=== PATIENT | female | born 1960 | race Hispanic/Latino ===

== ENCOUNTER → 2025-06-03 | Outpatient (CLI) | payer BC ==
--- NOTE | 2025-06-04 22:53 | HMCIMG ---
EXAM: MR Lumbar Spine Without Intravenous Contrast. CLINICAL HISTORY: Radiculopathy. TECHNIQUE: Magnetic resonance images of the lumbar spine in multiple planes. CONTRAST: None. COMPARISON: None. FINDINGS: For this examination, spinal levels were labeled assuming five non-rib bearing, lumbar-type vertebrae with the inferior labeled L5. No acute fracture. Normal lordotic curvature. Normal vertebral body height and marrow signal intensity. Multilevel disc desiccation. Mild degenerative reduction in disc space at T10-T11, T11-T12 level with degenerative lateral syndesmophyte. Type I Modic endplate changes at the T11-T12 level. Mild disc bulge at L5-S1 level. Multilevel degenerative facet arthropathy and facet joint effusion at L3-L4, L4-L5, and L5-S1 levels, most prominent at the L5-S1 level with facet joint effusion. Conus medullaris terminates at the T12-L1 level. No abnormal epidural masses. The surrounding soft tissues are unremarkable. Individual spinal levels are described as follows: T12-L1: No disc bulge or herniation. No neural foraminal, lateral recess or spinal canal stenosis. L1-L2: No disc bulge or herniation. No neural foraminal, lateral recess or spinal canal stenosis. L2-L3: No disc bulge or herniation. No neural foraminal, lateral recess or spinal canal stenosis. Mild bilateral facet arthropathy in the right facet joint effusion. L3-L4: No disc bulge or herniation. No neural foraminal, lateral recess or spinal canal stenosis. Mild bilateral facet arthropathy in the right facet joint effusion. L4-L5: No disc bulge or herniation. No neural foraminal, lateral recess or spinal canal stenosis. Bilateral facet arthropathy, facet joint effusion, and mild ligamentum flavum hypertrophy. L5-S1: Disc desiccation with 4 mm right paracentral disc bulge with moderate facet arthropathy and facet joint effusion. Moderate narrowing of the right neural foramina and right lateral recess. Abutment of the right exiting L5 and traversing S1 nerve root. IMPRESSION: No evidence of acute fracture or subluxation. Mild degenerative reduction in disc space at T10-T11, T11-T12 level with degenerative lateral syndesmophyte. Mild disc bulge at the L5-S1 level. Multilevel degenerative facet arthropathy and facet joint effusion at L3-L4, L4-L5, and L5-S1 levels, most prominent at the L5-S1 level with facet joint effusion. /[place]
== END | disposition home or self-care (01) ==
LOC: RAH 14:48
PROVIDERS: ATTEND Family Medicine
DX: M47.817 Spondylosis without myelopathy or radiculopathy, lumbosacral region (principal); M53.84 Other specified dorsopathies, thoracic region; M51.379 Other intervertebral disc degeneration, lumbosacral region without mention of lumbar back pain or lower extremity pain; M54.16 Radiculopathy, lumbar region
CPT/HCPCS: 72148